=== PATIENT | male | born 1995 | race Caucasian/White ===

== ENCOUNTER 2017-03-31 16:37 | Emergency (ER) | payer OTHER ==
[~2017-03-31] VITALS: Ht 190.5 cm; Wt 67.6 kg
[2017-03-31 16:40] VITALS: TEMP 36.6; Ht 190.5 cm; Wt 67.6 kg
--- NOTE | 2017-03-31 17:26 | EMERGENCY ROOM VISIT NOTE ---
History Report prepared by Arcadioibe: Rayna Combs Under the Supervision of: Dr. Niels Sr D.O. First contact with patient: 17:16 Chief Complaint: ABDOMINAL PAIN Stated Complaint: STOMACH AND BACK PAIN Nursing Triage Summary: Pt presents with pain that started in right back/flank radiating to right side of abdomen. Pt states pain began 1.5 hrs [employer]. Pt states nausea. Denies hx of kidney stones. Pt states, "I was just in excrutiating pain and while I was sitting in the waiting room it just went away." Denies urinary s/sx. History of Present Illness The patient is a 21 year old male who presents to the Emergency Room with complaints of right flank pain. The patient states while he was walking to class he had an acute onset of right-sided flank pain. The pain was very severe initially. The pain started to radiate to his right lower quadrant. The patient states that he presented to the emergency department because of the severity of pain. He states that while he was in the emergency Department his pain completely subsided. At this time he denies having any nausea vomiting or hematuria. He's never had some her symptoms in the past. Pain was worsened with movement as well as palpation over the lower back. The patient did not take any medications for pain. The patient was not seen at [facility] for this pain. Source of History: patient Onset: [employer] Position: back (right flank) Symptom Intensity: severe Timing: resolved Modifying Factors (Worsening): movement, other (palpation over back) Associated Symptoms: No nausea, No vomiting, No urinary symptoms Review of Systems See HPI for pertinent positives & negatives. A total of 10 systems reviewed and were otherwise negative. Past Medical & Surgical Medical Problems: (1) No significant past medical history Social History Smoking Status: Current Some Day Smoker Alcohol Use: occasionally Drug Use: none Marital Status: single Occupation Status: [employer] student Current/Historical Medications No Active Prescriptions or Reported Meds Allergies Coded Allergies: No Known Allergies (Unverified , 08/15/15) Physical Exam Vital Signs Date Time Temp Pulse Resp B/P (MAP) Pulse Ox O2 Delivery O2 Flow Rate FiO2 03/31/17 18:27 63 18 116/57 99 03/31/17 16:40 36.6 70 20 119/67 98 Room Air Physical Exam GENERAL: Patient is awake, alert, in no acute distress, patient is resting comfortably and showing no signs of anxiety EYES: The conjunctivae are clear. The pupils are round and reactive. EARS, NOSE, MOUTH AND THROAT: The nose is without any evidence of any deformity. Mucous membranes are moist tongue is midline NECK: The neck is nontender and supple. RESPIRATORY: Normal respiratory effort is noted there is no evidence of wheezing rhonchi or rales CARDIOVASCULAR: Regular rate and rhythm noted there no murmurs rubs or gallops normal S1 normal S2 GASTROINTESTINAL: The abdomen is soft. Bowel sounds are present in all quadrants. Abdomen is nontender BACK: No midline tenderness or or step-off noted range of motion in flexion extension as well as rotation no signs of muscle spasm noted MUSCULOSKELETAL/EXTREMITIES: There is no evidence of gross deformity full range of motion is noted in the hips and shoulders SKIN: There is no obvious evidence of any rash. There are no petechiae, pallor or cyanosis noted. NEUROLOGIC: Patient is awake alert and oriented x3 Medical Decision & Procedures ER Provider Diagnostic Interpretation: Radiology results as stated below per my review and radiologist interpretation: KUB CLINICAL HISTORY: Right-sided abdominal pain. COMPARISON STUDY: None. FINDINGS: The bowel gas pattern is normal. There is a moderate amount of stool within the colon and rectum. No definite urinary calculi are identified. A 7 mm density lateral to left transverse process of L4 is unlikely to reflect a ureteral calculus. IMPRESSION: 1. No evidence for a bowel obstruction. 2. No urinary calculi identified. Electronically signed by: Gold Walden M.D. 03/31/2017 6:06 PM RENAL ULTRASOUND CLINICAL HISTORY: Right flank pain. COMPARISON STUDY: KUB March 31, 2017. TECHNIQUE: Sonography of the kidneys and the urinary bladder was performed. FINDINGS: The right kidney measures 12.1 x 4.9 x 5.8 cm and the left measures 12.8 x 5.4 x 4.9 cm. There is no hydronephrosis. No renal calculi or masses are identified by sonography. Renal echogenicity, size and cortical thickness are normal. Neither ureteral jet was identified. Bladder was underdistended. IMPRESSION: Normal renal ultrasound. No hydronephrosis. Electronically signed by: Gold Walden M.D. 03/31/2017 6:11 PM Laboratory Results Test 03/31/17 17:30 Urine Color DK YELLOW Urine Appearance CLEAR (CLEAR) Urine pH 6.5 (4.5-7.5) Urine Specific [place] 1.027 (1.000-1.030) Urine Protein 1+ (NEG) Urine Glucose (UA) NEG (NEG) Urine Ketones TRACE (NEG) Urine Occult Blood 3+ (NEG) Urine Nitrite NEG (NEG) Urine Bilirubin NEG (NEG) Urine Urobilinogen NEG (NEG) Urine Leukocyte Esterase TRACE (NEG) Urine WBC (Auto) 1-5 /hpf (0-5) Urine RBC (Auto) >30 /hpf (0-4) Urine Hyaline Casts (Auto) 1-5 /lpf (0-5) Urine Epithelial Cells (Auto) 5-10 /lpf (0-5) Urine Bacteria (Auto) NEG (NEG) Laboratory results per my review. ED Course 172: The patient was evaluated in room B12. A complete history and physical examination were performed. 1824: I reevaluated the patient. He is feeling well and resting comfortably. I discussed his results and discharge instructions and he verbalized complete understanding and agreement. Medical Decision Prior records/ancillary studies reviewed. Triage Nursing notes reviewed. Differential diagnosis: Etiologies such as renal colic, appendicitis, diverticulitis, mesenteric ischemia, aortic pathology, infections, inflammatory bowel disease, PUD, biliary pathology, UTI, as well as others were entertained. The patient is a 21-year-old male who presented to the emergency department for an evaluation of acute right flank pain which began to radiate to his right lower quadrant. The patient states that this pain was acute in nature and very severe. The patient states that while he was in the waiting room the pain subsided. He did not have any reproducible pain on physical exam. He did not have any flank pain on percussion. The patient's ultrasound and KUB did not show any acute disease. He did have hematuria. At this time I feel his history of physical exam are likely consistent with renal colic. He likely passed the kidney stone. The patient did not wish to have any laboratory studies obtained. I discussed the patient's reports with him. He was encouraged to drink plenty clear liquids and continue using Motrin and Tylenol for pain. He was also encouraged to follow-up with [facility] for repeat urinalysis next week but return to the emergency department immediately symptoms change worsen or the need arises. Medication Reconcilliation Current Medication List: was personally reviewed by me Blood Pressure Screening Patient's blood pressure: Normal blood pressure Blood pressure disposition: Did not require urgent referral Impression Primary Impression: Right flank pain Additional Impressions: Hematuria suspected kidney stone Scribe Attestation The scribe's documentation has been prepared under my direction and personally reviewed by me in its entirety. I confirm that the note above accurately reflects all work, treatment, procedures, and medical decision making performed by me. Departure Information Dispostion Home / Self-Care Prescriptions No Active Prescriptions or Reported Meds Referrals No Doctor, Assigned (PCP) Patient Instructions Kidney Stones Eval, My [facility] Additional Instructions Drink plenty clear liquids. Continue using Motrin and Tylenol as directed for pain. Follow-up with [facility] next week for repeat urinalysis to be sure that the blood in the urine has resolved. Return to the emergency Department immediately if symptoms change worsen or the need arises. Problem Qualifiers Additional Impressions: Hematuria Hematuria type: unspecified type Qualified Codes: R31.9 - Hematuria, unspecified
[2017-03-31 18:06] LABS: URINE APPEARANCE CLEAR (CLEAR); URINE BILIRUBIN NEG (NEG); URINE COLOR DK YELLOW; URINE NITRITE NEG (NEG); URINE PH 6.5 (4.5-7.5); URINE SPECIFIC GRAVITY 1.027 (1.000-1.030); UROBILINOGEN NEG (NEG)
--- NOTE | 2017-03-31 18:07 | DIAGNOSTIC IMAGING REPORT ---
KUB CLINICAL HISTORY: Right-sided abdominal pain. COMPARISON STUDY: None. FINDINGS: The bowel gas pattern is normal. There is a moderate amount of stool within the colon and rectum. No definite urinary calculi are identified. A 7 mm density lateral to left transverse process of L4 is unlikely to reflect a ureteral calculus. IMPRESSION: 1. No evidence for a bowel obstruction. 2. No urinary calculi identified. Electronically signed by: Gold Walden M.D. 03/31/2017 6:06 PM Dictated Date/Time: 03/31/2017 6:01 PM
--- NOTE | 2017-03-31 18:12 | DIAGNOSTIC IMAGING REPORT ---
RENAL ULTRASOUND CLINICAL HISTORY: Right flank pain. COMPARISON STUDY: KUB March 31, 2017. TECHNIQUE: Sonography of the kidneys and the urinary bladder was performed. FINDINGS: The right kidney measures 12.1 x 4.9 x 5.8 cm and the left measures 12.8 x 5.4 x 4.9 cm. There is no hydronephrosis. No renal calculi or masses are identified by sonography. Renal echogenicity, size and cortical thickness are normal. Neither ureteral jet was identified. Bladder was underdistended. IMPRESSION: Normal renal ultrasound. No hydronephrosis. Electronically signed by: Gold Walden M.D. 03/31/2017 6:11 PM Dictated Date/Time: 03/31/2017 6:10 PM
[2017-03-31 18:19] LABS: MANUAL MICROSCOPIC REQUIRED? NO; REVIEW REQ? NO
[2017-03-31 18:27] VITALS: BP 116/57; PULSE 63; O2SAT 99
== END 2017-03-31 18:30 | disposition home or self-care (01) ==
LOC: C.EDB 16:39
DX: R10.9 Unspecified abdominal pain (principal); R31.9 Hematuria, unspecified; F17.200 Nicotine dependence, unspecified, uncomplicated